=== PATIENT | male | born 1980 | race Caucasian/White ===

== ENCOUNTER 2024-05-02 14:20 | Emergency (ER) | payer OTHER ==
[2024-05-02 14:53] VITALS: BP 131/77; PULSE 74
[2024-05-02] MEDS: Lidocaine 1% 5 ML VIAL INJECT ONE (15:06)
[2024-05-02] MEDS: Diphtheria,Pertussis(Acell),Tetanus Vaccine 0.5 ML Syringe IM ONE (15:06)
== END 2024-05-02 16:27 | disposition home or self-care (01) ==
LOC: MW.ED 14:20
DX: S91.311A Laceration without foreign body, right foot, initial encounter (principal); Z75.8 Other problems related to medical facilities and other health care; Z23 Encounter for immunization; W25.XXXA Contact with sharp glass, initial encounter
CPT/HCPCS: 73620-26-RT; 73620-RT; 90471; 90715; 99283-25; J3490